=== PATIENT | female | born 2000 | race Caucasian/White ===

== ENCOUNTER 2021-08-03 11:37 | Emergency (ER) | payer BC ==
[2021-08-03] MEDS ORDERED: predniSONE 20 MG TAB ONE (12:00)
--- NOTE | 2021-08-03 12:04 | ER ---
Nurse's Notes [facility] Name: Tara Dumont Age: 21 yrs Sex: Female : 2000 Arrival Date: 08/03/2021 Time: 11:42 Bed 17 Private MD: Diagnosis: Facial swelling;allergic reaction Presentation: 08/03 11:49 Chief complaint: Patient states: Sunburned 4 days ago, woke with facial swelling jl7 yesterday and took Benadryl, woke today with continued swelling. Coronavirus screen: At this time, the client does not indicate any symptoms associated with coronavirus-19. Ebola Screen: No symptoms or risks identified at this time. Initial Sepsis Screen: Does the patient meet any 2 criteria? No. Patient's initial sepsis screen is negative. Does the patient have a suspected source of infection? No. Patient's initial sepsis screen is negative. Risk Assessment: Do you want to hurt yourself or someone else? Patient reports no desire to harm self or others. Onset of symptoms was August 02, 2021. 11:49 Method Of Arrival: Ambulatory jl7 11:49 Acuity: HOME 4 jl7 Triage Assessment: 11:51 General: Appears in no apparent distress. uncomfortable, Behavior is calm, cooperative, jl7 appropriate for age. Pain: Complains of pain in face. 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 - Social history:: Smoking status: unknown. Screenin:53 Abuse screen: Denies threats or abuse. Nutritional screening: No deficits noted. jh6 Tuberculosis screening: No symptoms or risk factors identified. Fall Risk None identified. Assessment: 11:51 General: Appears uncomfortable, Behavior is calm, cooperative. Pain: Complains of pain jh6 in forehead, right eye and left eye Pain currently is 5 out of 10 on a pain scale. Quality of pain is described as tight from swelling Pain began 1 day ago. 2-3 days ago. Is continuous, Aggravated by alovera. 12:15 Reassessment: No changes from previously documented assessment. verbal understanding of [facility] d/c instructions and med. Vital Signs: 11:49 Resp 15; Weight 91.17 kg (R); jl7 12:16 BP 130 / 87; Pulse 91; Resp 18; Pulse Ox 100% ; Pain 3/10; 6 ED Course: 11:42 Patient arrived in ED. mr 11:47 John Turner DO is Attending Physician. ms3 11:48 Vee Daniel, RN is Primary Nurse. 6 11:51 Triage completed. jl7 11:51 Arm band placed on right wrist. jl7 11:53 Bed in low position. Call light in reach. Side rails up X 1. Adult w/ patient. 6 11:53 No provider procedures requiring assistance completed. 6 12:17 IV discontinued. 6 Administered Medications: 11:58 Drug: predniSONE 60 mg Route: PO; 6 12:17 Follow up: Response: No adverse reaction [facility] Outcome: 12:04 Discharge ordered by . ms3 12:17 Discharged to home ambulatory. 6 12:17 Condition: stable 12:17 Discharge instructions given to patient, family, Instructed on discharge instructions, follow up and referral plans. Demonstrated understanding of instructions, follow-up care, medications, Prescriptions given X 1. 12:18 Patient left the ED. [facility] Signatures: Ewa Morfin mr StevensonChayito RN RN 7 John Turner DO DO ms3 Vee Daniel, RN RN [facility]
--- NOTE | 2021-08-03 12:04 | EDPHYS ---
Physician Documentation [facility] Name: Tara Dumont Age: 21 yrs Sex: Female : 2000 Arrival Date: 08/03/2021 Time: 11:42 Bed 17 Private MD: ED Physician John Turner HPI: 08/03 11:54 This 21 yrs old Female presents to ER via Ambulatory with complaints of Facial Swelling.ms3 11:54 The patient or guardian reports swelling. The complaints affect the face. Context of ms3 injury:. Onset: The symptoms/episode began/occurred acutely, 2 day(s) ago. Associated signs and symptoms: Pertinent positives: sunburn and applied aloe to sunburn. 21-year-old female with no past medical history presents for facial swelling that began 2 days prior to arrival. Patient states she developed a sunburn on Mother's Day and applied aloe vera to her face and then began experiencing facial swelling. Patient denies pain at this time. Patient denies alleviating or inciting factors. Patient states last time she applied aloe vera was yesterday.. 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 - Social history:: Smoking status: unknown. ROS: 11:54 Constitutional: Negative for fever, and chills. Neck: Negative for injury, pain, and ms3 swelling, Cardiovascular: Negative for chest pain, and palpitations. Respiratory: Negative for shortness of breath, cough, wheezing, and pleuritic chest pain, Abdomen/GI: Negative for abdominal pain, nausea, vomiting, diarrhea, and constipation. 11:54 ENT: Positive for Facial swelling. 11:54 All other systems are negative. Exam: 11:54 Constitutional: This is a well developed, well nourished patient who is awake, alert, ms3 and in no acute distress. Neck: Trachea midline, no cervical lymphadenopathy. Supple, full range of motion without nuchal rigidity, or vertebral point tenderness. No Meningismus. Chest/axilla: Normal chest wall appearance and motion. Nontender with no deformity. Cardiovascular: Regular rate and rhythm with a normal S1 and S2. No gallops, murmurs, or rubs. Normal PMI, no JVD. No pulse deficits. Respiratory: Lungs have equal breath sounds bilaterally, clear to auscultation and percussion. No rales, rhonchi or wheezes noted. No increased work of breathing, no retractions or nasal flaring. Abdomen/GI: Soft, non-tender, with normal bowel sounds. No distension or tympany. No guarding or rebound. No evidence of tenderness throughout. Psych: Awake, alert, with orientation to person, place and time. Behavior, mood, and affect are within normal limits. 11:54 Head/face: Noted is erythema, of the face, swelling, that is moderate, of the face. Vital Signs: 11:49 Resp 15; Weight 91.17 kg (R); jl7 12:16 BP 130 / 87; Pulse 91; Resp 18; Pulse Ox 100% ; Pain 3/10; jh6 MDM: 11:52 Patient medically screened. ms3 11:54 Differential diagnosis: Allergic reaction; sunburn. Data reviewed: vital signs, nurses ms3 notes. Counseling: I had a detailed discussion with the patient and/or guardian regarding: the historical points, exam findings, and any diagnostic results supporting the discharge/admit diagnosis, the need for outpatient follow up, to return to the emergency department if symptoms worsen or persist or if there are any questions or concerns that arise at home. ED course: Discussed physical exam findings with patient. Patient to follow-up with PMD in 2 to 3 days. Patient understands and agrees with plan. All questions were answered. Return precautions discussed include worsening symptoms, or any other concerns. . Administered Medications: 11:58 Drug: predniSONE 60 mg Route: PO; jh6 12:17 Follow up: Response: No adverse reaction jh6 Disposition Summary: 08/03/21 12:04 Discharge Ordered Location: Home ms3 Condition: Stable ms3 Diagnosis - Facial swelling ms3 - allergic reaction ms3 Followup: ms3 - With: Private Physician - When: 2 - 3 days - Reason: Recheck today's complaints Discharge Instructions: - Discharge Summary Sheet ms3 - Contact Dermatitis, [id number] ms3 Forms: - Medication Reconciliation Form ms3 - Thank You Letter ms3 - Antibiotic Education ms3 - Prescription Opioid Use ms3 Prescriptions: - Prednisone 20 mg Oral Tablet - take 2 tablets by ORAL route once daily for 5 days; 10 tablet; Refills: 0, ms3 Product Selection Permitted Signatures: Chayito Stevenson RN RN jl7 John Turner DO DO ms3 Vee Daniel RN RN jh6
[2021-08-03 12:31] VITALS: BP 130/87; O2SAT 100
== END 2021-08-03 12:18 | disposition home or self-care (01) ==
LOC: ER 11:37
DX: R22.9 Localized swelling, mass and lump, unspecified (principal)
CPT/HCPCS: 99283; J7512